=== PATIENT | female | born 1995 | race African-American/Black ===

== ENCOUNTER 2020-03-14 02:43 | Emergency (ER) | payer OTHER ==
--- NOTE | 2020-03-14 03:09 | PDOC ---
Attending Attestation - Resident Resident Name: Jeff Dominguez - ED Attending Attestation I have performed the following: I have examined & evaluated the patient, The case was reviewed & discussed with the resident, I agree w/resident's findings & plan - HPI HPI: 03/14/20 04:15 See resident HPI - Physicial Exam PE: 03/14/20 04:15 See resident exam - Medical Decision Making 03/14/20 [id number] female with altered self perception and difficulty sleeping currently intermittently using medical marijuana for dysmenorrhea and chronic low back pain Patient is accompanied by her mother, they do admit to family history of depression She has no homicidal or suicidal ideations, she has no active auditory or visual hallucinations Plan on medical clearance and discharge with recommended outpatient psychiatric follow-up We will DC with short course of Atarax to assist with sleep Discharge - Discharge Information Problems reviewed: Yes Clinical Impression/Diagnosis: Sleep disturbance, unspecified - Follow up/Referral - Patient Discharge Instructions - Post Discharge Activity
[2020-03-14 03:15] VITALS: BP 125/84; PULSE 99; TEMP 98.8; BMI 15.5
[2020-03-14 04:01] LABS: BASO % 1.7 % (0-2.0); EOS % 1.4 % (0-4.5); HEMATOCRIT 33.7 % (32.4-45.2); HEMOGLOBIN 11.5 GM/dL (10.7-15.3); LYMPH % 44.7 % (8-40); MCH 29.1 pg (25.7-33.7); MEAN CELL VOLUME 85.6 fl (80-96); MEAN PLT VOLUME 8.1 fl (7.5-11.1); MONO % 13.1 % (3.8-10.2); NEUT % 39.1 % (42.8-82.8); PLATELET COUNT 228 K/MM3 (134-434); RBC 3.94 M/mm3 (3.60-5.2); RDW 14.8 % (11.6-15.6)
[2020-03-14 04:27] LABS: PH,URINE 7.5 (5.0-8.0); URINE APPEARANCE CLEAR; URINE BILIRUBIN NEGATIVE (NEGATIVE); URINE COLOR YELLOW; URINE GLUCOSE (UA) NEGATIVE (NEGATIVE); URINE KETONE TRACE (NEGATIVE); URINE LEUK ESTERASE NEGATIVE (NEGATIVE); URINE NITRITE NEGATIVE (NEGATIVE); URINE PROTEIN NEGATIVE (NEGATIVE); URINE UROBILINOGEN 0.2 mg/dL (0.2-1.0)
[2020-03-14 04:27] LABS: ALBUMIN 4.4 g/dl (3.4-5.0); BILIRUBIN,TOTAL 0.7 mg/dL (0.2-1); BLOOD UREA NITROGEN 7.7 mg/dL (7-18); CALCIUM 8.9 mg/dL (8.5-10.1); CREATININE 0.7 mg/dL (0.55-1.3); MAGNESIUM 1.9 mg/dL (1.8-2.4); POTASSIUM 3.7 mmol/L (3.5-5.1); TOT PROT 7.7 g/dl (6.4-8.2)
[2020-03-14 04:33] LABS: COCAINE, UR NEGATIVE ng/ml (CUTOFF=300); OPIATES, URI NEGATIVE ng/ml (CUTOFF=300); PHENCYCLIDINE,URINE NEGATIVE ng/ml (CUTOFF=25); URINE AMPHETAMINES NEGATIVE ng/ml (CUTOFF=500); URINE BARBITURATES NEGATIVE ng/ml (CUTOFF=200)
--- NOTE | 2020-03-14 04:37 | PDOC ---
History of Present Illness - General Chief Complaint: Psychiatric Stated Complaint: EVALUATION Time Seen by Provider: 03/14/20 03:09 History Source: Patient, Family Exam Limitations: No Limitations - History of Present Illness Initial Comments: 03/14/20 04:37 Riaz Ray is an otherwise healthy 24F presenting to ED for sensation of out of body experience. Patient reports today at ~3AM was awake and suddenly started having sensation that she was outside of her body and floating. Also has had multiple episodes of feeling smaller than her body and speaking in a child-like voice. Came to ED for evaluation. Denies SI/HI or AVH. No history of thyroid disorders, FH of MDD and schizophrenia in a maternal uncle. Patient has not seen PMD in several years, has never had mental health discussion before. Patient denies home/work/relationship stressors. 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 Works at a [employer], occasionally uses CBD products for sleep aid but not in the last week. Denies alcohol/tobacco use, no other drugs other than CBD liquid. Denies fevers, chills, nausea, vomiting, diaphoresis, chest pain, dizziness, vis ion changes, abdominal pain, urinary symptoms. LMP one week ago. Per mother at bedside reports patient often has trouble sleeping but gets anxious at work. No obvious stressors, pet cat about 5 months ago. Past History - Medical History Allergies/Adverse Reactions: Allergies Allergy/AdvReac Type Severity Reaction Status Date / Time No Known Allergies Allergy Verified 03/14/20 03:12 Home Medications: Ambulatory Orders Hydroxyzine HCl 25 mg PO HS PRN #5 tablet 03/14/20 COPD: No - Reproductive History Is Patient Now?: No - Psycho-Social/Smoking History Smoking History: Never smoked - Substance Abuse Hx (Audit-C & DAST Scrn) How often the patient has a drink containing alcohol: Never Score: In Men: 4 or > Positive; In Women: 3 or > Positive: 0 Screen Result (Pos requires Nsg. Audit-10AR): Negative In the last yr the pt used illegal drug/Rx for NonMed reason: No Score: Yes response is considered Positive: 0 Screen Result (Positive result requires Nsg. DAST-10): Negative Review of Systems - Review of Systems Able to Perform ROS?: Yes Constitutional: No: Symptoms Reported HEENTM: No: Symptoms Reported Respiratory: No: Symptoms reported Cardiac (ROS): No: Symptoms Reported ABD/GI: No: Symptoms Reported : No: Symptoms Reported Musculoskeletal: No: Symptoms Reported Integumentary: No: Symptoms Reported Neurological: No: Symptoms reported Psychiatric: Yes: Anxiety, Sleep Pattern Change Endocrine: No: Symptoms Reported Hematologic/Lymphatic: No: Symptoms Reported All Other Systems: Reviewed and Negative *Physical Exam - Vital Signs Last Vital Signs Temp Pulse Resp BP Pulse Ox 98.8 F 99 H 15 125/84 99 03/14/20 03:08 03/14/20 03:08 03/14/20 03:08 03/14/20 03:08 03/14/20 03:08 - Physical Exam General Appearance: Yes: Nourished, Appropriately Dressed, Thin, Other (THIN APPEARING, SITTING COMFORTABLY IN BED). No: Apparent Distress HEENT: positive: EOMI, BALWINDER, Normal Voice, Symmetrical, Pharynx Normal. negative: Scleral Icterus (R), Scleral Icterus (L), Pharyngeal Erythema, Tonsillar Exudate, Tonsillar Erythema, Hearing Decreased Neck: positive: Trachea midline, Normal Thyroid, Supple. negative: Tender, Rigid, Lymphadenopathy (R), Lymphadenopathy (L), Tender lateral, Tender midline Respiratory/Chest: positive: Lungs Clear, Normal Breath Sounds. negative: Chest Tender, Respiratory Distress, Accessory Muscle Use, Crackles, Rales, Rhonchi, Stridor, Wheezing Cardiovascular: positive: Regular Rhythm, Tachycardia. negative: Murmur Gastrointestinal/Abdominal: positive: Normal Bowel Sounds, Flat, Soft. negative: Tender, Organomegaly, Protuberent, Distended, Rebound, Tenderness, Hernia Musculoskeletal: positive: Normal Inspection. negative: CVA Tenderness, Vertebral Tenderness Extremity: positive: Normal Capillary Refill, Normal Inspection, Normal Range of Motion. negative: Tender, Delayed Capillary Refill, Pedal Edema, Swelling Integumentary: positive: Normal Color, Dry, Warm Neurologic: positive: company controller II-XII NML intact, Fully Oriented, Alert, Normal Mood/Affect, Normal Response, Motor Strength 5/5, Other (GAIT NORMAL). negative: Sensory Deficit ED Treatment Course - LABORATORY CBC & Chemistry Diagram: 03/14/20 03:40 03/14/20 03:40 - ADDITIONAL ORDERS Additional order review: Laboratory Results 03/14/20 03/14/20 03/14/20 04:10 04:10 03:40 Sodium 141 Potassium 3.7 Chloride 107 Carbon Dioxide 25 Anion Gap 8 BUN 7.7 Creatinine 0.7 Est GFR (CKD-EPI)AfAm 141.54 Est GFR (CKD-EPI)NonAf 122.12 Random Glucose 91 Calcium 8.9 Magnesium 1.9 Total Bilirubin 0.7 AST 14 L ALT 13 Alkaline Phosphatase 56 Total Protein 7.7 Albumin 4.4 TSH 4.70 H Urine Color Yellow Urine Appearance Clear Urine pH 7.5 Ur Specific [place] 1.009 L Urine Protein Negative Urine Glucose (UA) Negative Urine Ketones Trace H Urine Blood Negative Urine Nitrite Negative Urine Bilirubin Negative Urine Urobilinogen 0.2 Ur Leukocyte Esterase Negative Opiates Screen Negative Barbiturate Screen Negative Phencyclidine Screen Negative Ur Amphetamines Screen Negative MDMA (Ecstasy) Screen Negative Cocaine Screen Negative U Marijuana (THC) Screen Negative 03/14/20 03:40 RBC 3.94 MCV 85.6 MCHC 34.0 RDW 14.8 MPV 8.1 Neutrophils % 39.1 L Lymphocytes % 44.7 H Monocytes % 13.1 H Eosinophils % 1.4 Basophils % 1.7 Medical Decision Making - Medical Decision Making 03/14/20 06:56 Patient here with mother for evaluation of sensation of out of body. No other symptoms. No PMH. No medications taken other than CBD oil. Low suspicion of acute medical pathology, but evaluating for infection, electrolyte abnormality, illicit drug or alcohol use, thyroid dysfunction via CBC/CMP/TSH/ECG/CXR/UA/UC/UTOX/ETOH/. ECG notable for: sinus rhythm with sinus arrhythmia, HR 82, QTc 392, no KARLA/D, mild TWI in III. Labs notable for: - CBC WNL - CMP WNL - preg negative - UA WNL - UTOX negative - ETOH negative Patient is feeling well and has no electrolyte abnormalities concerning cardiac pathology. Mild hypothyroidism, can be managed outpatient. Symptoms are likely 2/2 hypothyroidism vs. psychiatric condition such as anxiety, MDD, or BPD. Patient has no SI/HI or AVH. Patient referred to [facility] for Synthroid planning and multiple psych providers for outpatient follow-up of symptoms. Discussed sleep hygiene, sending Rx for hydroxyzine for sleep aid. Patient agrees to plan, safe for discharge home with mother. Discharge - Discharge Information Problems reviewed: Yes Clinical Impression/Diagnosis: Sleep disturbance, unspecified Condition: Stable Disposition: HOME - Additional Discharge Information Prescriptions: Hydroxyzine HCl 25 mg PO HS PRN #5 tablet PRN Reason: Insomnia - Follow up/Referral Referrals: [facility] [place] [Provider Group] Mathew Monet MD [Non Staff, Medical] - Hugh Fraser MD [Non Staff, Medical] - Amilcar Villagomez MD [Non Staff, Medical] - Arlet Bains MD [Non Staff, Medical] - Joann Arciniega MD [Non Staff, Medical] - Carmine Hogan MD [Non Staff, Medical] - Delano Amanda MD [Non Staff, Medical] - Cecilio Morrissey MD [Non Staff, Medical] - Karla Antony MD [Staff Physician] - - Patient Discharge Instructions Patient Printed Discharge Instructions: Tips for Getting a Good Night's Sleep Additional Instructions: Today you were evaluated for a sensation of an out of body experience and difficulty sleeping. As discussed, we have examined your blood and urine for p roblems, and your labs show that you may have hypothyroidism and may benefit from taking a medication called Synthroid for your symptoms. A referral to a primary care physician has been given, and you should follow-up. However, your symptoms of poor sleep, anxiety, and strange sensations need to be evaluated by a mental health professional such as a psychiatrist or therapist, as they may reflect depression or anxiety that you may be suffering from without knowing it. We have given you several referrals to various specialists, and encourage you to make an appointment with one. At home, eat a balanced diet, and practice good sleep hygiene, including avoiding caffeine and phones/TV close to bedtime. A medication called Atarax has been prescribed to help you sleep. If you experience worsening symptoms, began hearing voices, have chest pain or difficulty breathing, or have thoughts of wanting to hurt yourself or others, please return to the emergency room. - Post Discharge Activity Work/Back to School Note: My Personal Safety Plan
[2020-03-14 04:51] LABS: METHADONE, UR NEGATIVE ng/ml (CUTOFF=300); URINE BENZODIAZEPINES NEGATIVE ng/ml (CUTOFF=200)
--- NOTE | 2020-03-14 09:22 | EKG ---
Test Reason : Blood Pressure : / mmHG Vent. Rate : 082 BPM Atrial Rate : 082 BPM P-R Int : 138 ms QRS Dur : 062 ms QT Int : 338 ms P-R-T Axes : 074 030 020 degrees QTc Int : 394 ms SINUS RHYTHM WITH MARKED SINUS ARRHYTHMIA OTHERWISE NORMAL ECG NO PREVIOUS ECGS AVAILABLE Confirmed by Jadiel White MD ([id number]) on 03/14/2020 9:22:18 AM Referred By: Confirmed By:Jadiel White MD
== END 2020-03-14 05:18 | disposition home or self-care (01) ==
LOC: JER 02:43
DX: G47.9 Sleep disorder, unspecified (principal)
CPT/HCPCS: 36415; 80053; 80307; 81003; 83735; 84443; 84703; 85025; 87086; 93005; 93010; 99284-25